=== PATIENT | female | born 1955 | race Caucasian/White ===

== ENCOUNTER 2019-10-23 07:47 | Inpatient (IN) ==
[2019-10-23] MEDS ORDERED: *HR* LORazepam 2 MG/ML VIAL IVP ONE (10:27)
[2019-10-23] MEDS ORDERED: Naloxone 0.4 MG/ML INJ IVP PRN (10:28)
[2019-10-23] MEDS ORDERED: Ondansetron 4 MG/2 ML VIAL IVP PRN (10:28)
[2019-10-23 10:41] LABS: ABG Base Excess -2 mEq/L (-2 to 3); ABG HCO3 30 mEq/L (21-27); ABG Oxygen Saturation 97 % (95-98); ABG PCO2 76 mmHg (35-45); ABG PO2 110 mmHg (85-104); ABG TCO2 32 mEq/L (20-26); Blood Gas Pressure Support 7 cm H2O
[2019-10-23] MEDS: methylPREDNISolone 125 MG/2 ML VIAL IVP SCH ×3 (10:45→23:12)
[2019-10-23] MEDS: Piperacillin/Tazobactam 3.375 GM in 0.9 % Sodium Chloride Mini Bag 100 ML IVPB SCH ×3 (10:46→16:25)
[2019-10-23] MEDS: Ipratropium/Albuterol Neb 3 ML IH PRN ×2 (10:46→15:30)
[2019-10-23] MEDS ORDERED: Dextrose Gel 15 GM/37.5 ML TUBE PO PRN ×2 (10:55)
[2019-10-23] MEDS ORDERED: D5% in Water 1,000 ML IVC PRN (10:55)
[2019-10-23] MEDS ORDERED: *HR* Dextrose 50 % in Water (Syg) 50 ML SYRINGE IVP PRN (10:55)
[2019-10-23 11:32] LABS: Basophils % 0.1 %; Hematocrit 46.8 % (35.3-44.9); Hemoglobin 15.2 g/dL (11.5-15.4); Immature Granulocytes % 0.5 % (0-4); Lymphocytes # 0.6 K/mcL (0.6-4.6); Lymphocytes % 3.9 %; Mean Corpuscular HGB Conc 32.5 g/dL (31.6-35.5); Mean Corpuscular Hemoglobin 26.4 pg (28.0-33.3); Mean Corpuscular Volume 81.3 fL (83.0-100.0); Mean Platelet Volume 9.4 fL (9.4-12.4); Monocytes # 0.6 K/mcL (0.0-1.3); Monocytes % 3.9 %; Neutrophils # 14.6 K/mcL (1.6-8.9); Platelet Count 336 K/mcL (140-400); Red Blood Count 5.76 M/mcL (3.82-4.97); Red Cell Distribution Width 14.1 % (11.5-14.5); Segmented Neutrophils % 91.6 %
[2019-10-23 11:34] LABS: VBG HCO3 27 mEq/L (21-27); VBG PCO2 66 mmHg (41-51); VBG PH 7.23 pH Units (7.32-7.42); VBG PO2 155 mmHg (25-50)
[2019-10-23] MEDS: Ipratropium/Albuterol Neb 3 ML IH SCH ×3 (11:43→19:50)
[2019-10-23] MEDS ORDERED: Furosemide 40 MG/4 ML VIAL IVP ONE (11:46)
[2019-10-23 11:53] LABS: BUN/Creatinine Ratio 23 (6-26); Blood Urea Nitrogen 13 mg/dL (8-23); Calcium 9.2 mg/dL (8.6-10.3); Carbon Dioxide 26 mEq/L (23-29); Chloride 95 mEq/L (98-107); Glucose 190 mg/dL (70-105); Osmolality,Calculated 275 (280-300); Potassium 4.4 mEq/L (3.5-5.1); Sodium 130 mEq/L (136-145); eGFR For African Americans > 60 (> 60); eGFR For Non-African Americans > 60 (> 60)
[2019-10-23 12:13] LABS: Troponin I 0.46 ng/mL (< 0.04)
[2019-10-23] MEDS: Insulin LISPRO 300 UNITS/3 ML VIAL SQ SCH ×3 (12:15→23:38)
[2019-10-23] MEDS ORDERED: Aspirin 325 MG TABLET PO ONE (12:33)
[2019-10-23] MEDS ORDERED: Morphine Sulfate 2 MG/ML SYRINGE IVP PRN (12:44)
[2019-10-23] MEDS ORDERED: Ipratropium/Albuterol Neb 3 ML ONE (13:11)
[2019-10-23] MEDS ORDERED: Ipratropium/Albuterol Neb 3 ML IH ONE (13:13)
[2019-10-23] MEDS ORDERED: Perflutren Lipid Microsphere 1.3 ML in 0.9 % Sodium Chloride 8.7 ML IVP ONE (14:30)
[2019-10-23] MEDS ORDERED: Perflutren Lipid Microsphere 2 ML VIAL ONE (14:35)
[2019-10-23 15:18] LABS: ABG Base Excess -1 mEq/L (-2 to 3); ABG HCO3 30 mEq/L (21-27); ABG Oxygen Saturation 97 % (95-98); ABG PCO2 77 mmHg (35-45); ABG PO2 116 mmHg (85-104); ABG TCO2 33 mEq/L (20-26); Blood Gas Modality AF; Blood Gas VT 450 cc
[2019-10-23] MEDS: *HR* OxyCODONE Immed Rel 5 MG TABLET PO PRN (17:17)
[2019-10-23] MEDS ORDERED: *HR* Heparin 5,000 UNIT/ML VIAL IVP ONE (18:11)
[2019-10-23] MEDS ORDERED: *HR* Heparin 5,000 UNIT/ML VIAL IVP PRN ×2 (18:11)
[2019-10-23] MEDS ORDERED: Heparin 25,000 UNIT/250 ML D5W 25,000 UNIT/250 ML IV.SOLN IVC SCH (18:15)
[2019-10-23 18:55] LABS: Hematocrit 45.3 % (35.3-44.9); Hemoglobin 14.5 g/dL (11.5-15.4); Mean Corpuscular Hemoglobin 26.3 pg (28.0-33.3); Mean Corpuscular Volume 82.1 fL (83.0-100.0); Mean Platelet Volume 9.3 fL (9.4-12.4); Platelet Count 308 K/mcL (140-400); Red Blood Count 5.52 M/mcL (3.82-4.97); Red Cell Distribution Width 14.2 % (11.5-14.5); White Blood Count 16.2 K/mcL (4.3-11.1)
[2019-10-23 19:00] LABS: INR 0.9; Prothrombin Time 10.5 Seconds (9.4-12.1)
[2019-10-23] MEDS: *HR* LORazepam 2 MG/ML VIAL IVP PRN (21:26)
[2019-10-24] MEDS: Ipratropium/Albuterol Neb 3 ML IH SCH ×7 (00:09→23:25)
[2019-10-24 02:48] LABS: Basophils % 0.1 %; Hematocrit 45.9 % (35.3-44.9); Hemoglobin 15.1 g/dL (11.5-15.4); Immature Granulocytes % 0.5 % (0-4); Lymphocytes # 0.6 K/mcL (0.6-4.6); Lymphocytes % 3.2 %; Mean Corpuscular HGB Conc 32.9 g/dL (31.6-35.5); Mean Corpuscular Hemoglobin 26.3 pg (28.0-33.3); Mean Corpuscular Volume 79.8 fL (83.0-100.0); Mean Platelet Volume 9.7 fL (9.4-12.4); Monocytes # 0.7 K/mcL (0.0-1.3); Monocytes % 4.2 %; Platelet Count 334 K/mcL (140-400); Red Blood Count 5.75 M/mcL (3.82-4.97); Red Cell Distribution Width 14.2 % (11.5-14.5); White Blood Count 17.4 K/mcL (4.3-11.1)
[2019-10-24 04:01] LABS: BUN/Creatinine Ratio 21 (6-26); Blood Urea Nitrogen 21 mg/dL (8-23); Calcium 9.1 mg/dL (8.6-10.3); Carbon Dioxide 22 mEq/L (23-29); Chloride 97 mEq/L (98-107); Glucose 148 mg/dL (70-105); Osmolality,Calculated 282 (280-300); Potassium 4.5 mEq/L (3.5-5.1); Sodium 133 mEq/L (136-145); eGFR For African Americans > 60 (> 60); eGFR For Non-African Americans 55 (> 60)
[2019-10-24] MEDS ORDERED: *HR* Enoxaparin 40 MG/0.4 ML SYRINGE SQ SCH (06:00)
[2019-10-24] MEDS: methylPREDNISolone 125 MG/2 ML VIAL IVP SCH ×3 (06:26→19:02)
[2019-10-24] MEDS: Insulin LISPRO 300 UNITS/3 ML VIAL SQ SCH ×3 (06:26→19:00)
[2019-10-24] MEDS: *HR* LORazepam 2 MG/ML VIAL IVP PRN (07:45)
[2019-10-24] MEDS: Azithromycin 500 MG in 0.9 % Sodium Chloride 250 ML IVPB SCH (07:45)
[2019-10-24] MEDS: Piperacillin/Tazobactam 3.375 GM in 0.9 % Sodium Chloride Mini Bag 100 ML IVPB SCH ×2 (07:46→15:33)
[2019-10-24 09:28] LABS: ABG Base Excess 1 mEq/L (-2 to 3); ABG HCO3 32 mEq/L (21-27); ABG Oxygen Saturation 99 % (95-98); ABG PCO2 81 mmHg (35-45); ABG PO2 158 mmHg (85-104); ABG TCO2 35 mEq/L (20-26); Blood Gas Modality AF; Blood Gas VT 500 cc
[2019-10-24] MEDS ORDERED: *HR* Midazolam HCl 2 MG/2 ML VIAL IV ONE (10:41)
[2019-10-24] MEDS ORDERED: *HR* Propofol 200 MG/20 ML VIAL IVP ONE (10:41)
[2019-10-24] MEDS ORDERED: *HR* Etomidate 40 MG/20 ML VIAL IVP ONE (10:41)
[2019-10-24] MEDS ORDERED: *HR* Midazolam HCl 5 MG/5 ML VIAL IVP ONE (10:41)
[2019-10-24] MEDS ORDERED: Ringers Solution, Lactated 1,000 ML ONE (10:54)
[2019-10-24] MEDS ORDERED: *HR* FentaNYL (PF) 100 MCG/2 ML VIAL ONE (11:00)
[2019-10-24] MEDS ORDERED: *HR* Phenylephrine 10 MG/ML VIAL ONE (11:05)
[2019-10-24] MEDS ORDERED: *HR* FentaNYL (PF) 100 MCG/2 ML VIAL IVP ONE (11:32)
[2019-10-24] MEDS ORDERED: Artificial Tears SOLN 15 ML BOTTLE BOTH EYES PRN (11:35)
[2019-10-24] MEDS: FentaNYL (PF) 1,000 MCG in 0.9 % Sodium Chloride 80 ML IVC SCH ×2 (12:25→19:43)
[2019-10-24] MEDS ORDERED: Pantoprazole 40 MG VIAL IVP SCH (12:50)
[2019-10-24] MEDS ORDERED: methylPREDNISolone 125 MG/2 ML VIAL IVP SCH (13:15)
[2019-10-24 13:23] LABS: ABG Base Excess 3 mEq/L (-2 to 3); ABG HCO3 34 mEq/L (21-27); ABG Oxygen Saturation 97 % (95-98); ABG PCO2 83 mmHg (35-45); ABG PH 7.21 pH Units (7.32-7.45); ABG PO2 109 mmHg (85-104); ABG TCO2 36 mEq/L (20-26); Blood Gas Modality AF; Blood Gas VT 450 cc
[2019-10-24 14:14] LABS: Adenovirus Not Detected (Not Detect); Bordetella Pertussis Not Detected (Not Detect); Chlamydophila pneumoniae Not Detected (Not Detect); Coronavirus 229E Not Detected (Not Detect); Coronavirus HKU1 Not Detected (Not Detect); Coronavirus NL63 Not Detected (Not Detect); Coronavirus OC43 Not Detected (Not Detect); Human Metapneumovirus Not Detected (Not Detect); Human Rhinovirus/Enterovirus Not Detected (Not Detect); Influenza A Subtype 2009 H1 Not Detected (Not Detect); Influenza A Untypeable Not Detected (Not Detect); Influenza B Not Detected (Not Detect); Mycoplasma pneumoniae Not Detected (Not Detect); Parainfluenza Virus 1 Not Detected (Not Detect); Parainfluenza Virus 2 Not Detected (Not Detect); Parainfluenza Virus 3 Not Detected (Not Detect); Parainfluenza Virus 4 Not Detected (Not Detect); Respiratory Syncytial Virus Not Detected (Not Detect)
[2019-10-24] MEDS ORDERED: 0.9 % Sodium Chloride 1,000 ML IVC SCH (15:30)
[2019-10-24] MEDS: Artificial Tears SOLN 15 ML BOTTLE BOTH EYES SCH ×3 (15:34→20:00)
[2019-10-24] MEDS: 0.9 % Sodium Chloride 1,000 ML IVC SCH (17:29)
[2019-10-24] MEDS ORDERED: Famotidine 20 MG/2 ML VIAL IVP SCH (18:00)
[2019-10-24] MEDS: Famotidine 20 MG/2 ML VIAL IVP SCH (19:02)
[2019-10-24] MEDS: Chlorhexidine Rinse 15 ML MOUTHWASH MM SCH (21:43)
[2019-10-24] MEDS: *HR* Heparin 5,000 UNIT/ML VIAL SQ SCH (22:15)
[2019-10-25] MEDS: Piperacillin/Tazobactam 3.375 GM in 0.9 % Sodium Chloride Mini Bag 100 ML IVPB SCH ×4 (00:37→23:16)
[2019-10-25] MEDS: Artificial Tears SOLN 15 ML BOTTLE BOTH EYES SCH ×7 (00:37→23:15)
[2019-10-25] MEDS: Insulin LISPRO 300 UNITS/3 ML VIAL SQ SCH ×5 (00:37→23:15)
[2019-10-25] MEDS: methylPREDNISolone 125 MG/2 ML VIAL IVP SCH ×3 (02:08→17:46)
[2019-10-25] MEDS: FentaNYL (PF) 1,000 MCG in 0.9 % Sodium Chloride 80 ML IVC SCH ×4 (03:05→21:08)
[2019-10-25] MEDS: 0.9 % Sodium Chloride 1,000 ML IVC SCH (03:09)
[2019-10-25] MEDS: Ipratropium/Albuterol Neb 3 ML IH SCH ×6 (03:25→23:51)
[2019-10-25 03:48] LABS: Basophils % 0.1 %; Hematocrit 42.2 % (35.3-44.9); Hemoglobin 13.8 g/dL (11.5-15.4); Immature Granulocytes % 0.5 % (0-4); Lymphocytes # 0.7 K/mcL (0.6-4.6); Lymphocytes % 5.4 %; Mean Corpuscular HGB Conc 32.7 g/dL (31.6-35.5); Mean Corpuscular Hemoglobin 26.3 pg (28.0-33.3); Mean Corpuscular Volume 80.4 fL (83.0-100.0); Mean Platelet Volume 9.3 fL (9.4-12.4); Monocytes # 0.6 K/mcL (0.0-1.3); Neutrophils # 11.3 K/mcL (1.6-8.9); Platelet Count 300 K/mcL (140-400); Red Blood Count 5.25 M/mcL (3.82-4.97); Red Cell Distribution Width 14.6 % (11.5-14.5); White Blood Count 12.8 K/mcL (4.3-11.1)
[2019-10-25 04:03] LABS: BUN/Creatinine Ratio 35 (6-26); Blood Urea Nitrogen 29 mg/dL (8-23); Calcium 8.7 mg/dL (8.6-10.3); Carbon Dioxide 31 mEq/L (23-29); Chloride 100 mEq/L (98-107); Glucose 131 mg/dL (70-105); Osmolality,Calculated 286 (280-300); Potassium 4.4 mEq/L (3.5-5.1); Sodium 134 mEq/L (136-145); eGFR For African Americans > 60 (> 60); eGFR For Non-African Americans > 60 (> 60)
[2019-10-25 05:06] LABS: ABG Base Excess 1 mEq/L (-2 to 3); ABG HCO3 30 mEq/L (21-27); ABG Oxygen Saturation 95 % (95-98); ABG PCO2 64 mmHg (35-45); ABG PH 7.28 pH Units (7.32-7.45); ABG PO2 90 mmHg (85-104); ABG TCO2 32 mEq/L (20-26); Blood Gas Modality ASSIST CONTROL; Blood Gas VT 450 cc
[2019-10-25] MEDS: *HR* Heparin 5,000 UNIT/ML VIAL SQ SCH ×3 (06:42→21:09)
[2019-10-25] MEDS: Chlorhexidine Rinse 15 ML MOUTHWASH MM SCH ×2 (07:57→19:58)
[2019-10-25] MEDS: Azithromycin 500 MG in 0.9 % Sodium Chloride 250 ML IVPB SCH (09:05)
[2019-10-25] MEDS: Famotidine 20 MG/2 ML VIAL IVP SCH (17:46)
[2019-10-26] MEDS: methylPREDNISolone 125 MG/2 ML VIAL IVP SCH ×3 (01:05→18:11)
[2019-10-26] MEDS: FentaNYL (PF) 1,000 MCG in 0.9 % Sodium Chloride 80 ML IVC SCH ×4 (01:06→18:00)
[2019-10-26] MEDS: Ipratropium/Albuterol Neb 3 ML IH SCH ×6 (03:22→23:44)
[2019-10-26] MEDS: Artificial Tears SOLN 15 ML BOTTLE BOTH EYES SCH ×6 (04:03→23:41)
[2019-10-26 04:15] LABS: BUN/Creatinine Ratio 42 (6-26); Blood Urea Nitrogen 38 mg/dL (8-23); Calcium 9.1 mg/dL (8.6-10.3); Carbon Dioxide 29 mEq/L (23-29); Chloride 101 mEq/L (98-107); Glucose 152 mg/dL (70-105); Osmolality,Calculated 292 (280-300); Sodium 135 mEq/L (136-145); eGFR For African Americans > 60 (> 60); eGFR For Non-African Americans > 60 (> 60)
[2019-10-26 04:32] LABS: Basophils % 0.1 %; Hematocrit 45.2 % (35.3-44.9); Hemoglobin 14.4 g/dL (11.5-15.4); Immature Granulocytes % 0.6 % (0-4); Lymphocytes # 0.4 K/mcL (0.6-4.6); Lymphocytes % 3.5 %; Mean Corpuscular HGB Conc 31.9 g/dL (31.6-35.5); Mean Corpuscular Hemoglobin 26.2 pg (28.0-33.3); Mean Corpuscular Volume 82.2 fL (83.0-100.0); Mean Platelet Volume 9.5 fL (9.4-12.4); Monocytes # 0.6 K/mcL (0.0-1.3); Monocytes % 5.2 %; Neutrophils # 10.3 K/mcL (1.6-8.9); Platelet Count 309 K/mcL (140-400); Red Cell Distribution Width 14.9 % (11.5-14.5); Segmented Neutrophils % 90.6 %; White Blood Count 11.4 K/mcL (4.3-11.1)
[2019-10-26] MEDS: *HR* Heparin 5,000 UNIT/ML VIAL SQ SCH ×3 (05:07→20:58)
[2019-10-26] MEDS: Insulin LISPRO 300 UNITS/3 ML VIAL SQ SCH ×4 (05:08→23:43)
[2019-10-26 05:12] LABS: ABG Base Excess 2 mEq/L (-2 to 3); ABG HCO3 32 mEq/L (21-27); ABG Oxygen Saturation 83 % (95-98); ABG PCO2 77 mmHg (35-45); ABG PH 7.22 pH Units (7.32-7.45); ABG PO2 59 mmHg (85-104); ABG TCO2 34 mEq/L (20-26); Blood Gas Modality ASSIST CONTROL; Blood Gas VT 450 cc
[2019-10-26] MEDS ORDERED: Furosemide 20 MG/2 ML VIAL IVP ONE (08:24)
[2019-10-26] MEDS: Chlorhexidine Rinse 15 ML MOUTHWASH MM SCH ×2 (09:37→20:58)
[2019-10-26] MEDS: Piperacillin/Tazobactam 3.375 GM in 0.9 % Sodium Chloride Mini Bag 100 ML IVPB SCH ×2 (09:37→16:17)
[2019-10-26] MEDS: Azithromycin 500 MG in 0.9 % Sodium Chloride 250 ML IVPB SCH (09:37)
[2019-10-26] MEDS: Famotidine 20 MG/2 ML VIAL IVP SCH (18:11)
[2019-10-27] MEDS: Piperacillin/Tazobactam 3.375 GM in 0.9 % Sodium Chloride Mini Bag 100 ML IVPB SCH ×4 (00:19→23:45)
[2019-10-27] MEDS: Artificial Tears SOLN 15 ML BOTTLE BOTH EYES SCH ×6 (03:13→23:38)
[2019-10-27] MEDS: Ipratropium/Albuterol Neb 3 ML IH SCH ×6 (04:15→23:18)
[2019-10-27 05:45] LABS: ABG Base Excess 8 mEq/L (-2 to 3); ABG HCO3 38 mEq/L (21-27); ABG Oxygen Saturation 94 % (95-98); ABG PCO2 81 mmHg (35-45); ABG PH 7.28 pH Units (7.32-7.45); ABG PO2 85 mmHg (85-104); ABG TCO2 41 mEq/L (20-26)
[2019-10-27] MEDS: *HR* Heparin 5,000 UNIT/ML VIAL SQ SCH ×3 (06:08→21:28)
[2019-10-27] MEDS: methylPREDNISolone 125 MG/2 ML VIAL IVP SCH ×2 (06:08→18:24)
[2019-10-27] MEDS: Insulin LISPRO 300 UNITS/3 ML VIAL SQ SCH ×4 (06:09→23:38)
[2019-10-27] MEDS: Chlorhexidine Rinse 15 ML MOUTHWASH MM SCH ×2 (08:32→19:27)
[2019-10-27] MEDS: Azithromycin 500 MG in 0.9 % Sodium Chloride 250 ML IVPB SCH (08:32)
[2019-10-27] MEDS: Budesonide/Formoterol 160/4.5 1 PUFF INH IH SCH ×2 (09:36→19:29)
[2019-10-27 09:40] LABS: Basophils % 0.1 %; Hematocrit 43.3 % (35.3-44.9); Hemoglobin 13.8 g/dL (11.5-15.4); Immature Granulocytes % 0.8 % (0-4); Lymphocytes # 0.9 K/mcL (0.6-4.6); Lymphocytes % 8.2 %; Mean Corpuscular HGB Conc 31.9 g/dL (31.6-35.5); Mean Corpuscular Hemoglobin 26.3 pg (28.0-33.3); Mean Corpuscular Volume 82.6 fL (83.0-100.0); Mean Platelet Volume 9.5 fL (9.4-12.4); Monocytes # 1.2 K/mcL (0.0-1.3); Neutrophils # 9.3 K/mcL (1.6-8.9); Platelet Count 281 K/mcL (140-400); Red Blood Count 5.24 M/mcL (3.82-4.97); Red Cell Distribution Width 14.8 % (11.5-14.5); Segmented Neutrophils % 80.9 %; White Blood Count 11.5 K/mcL (4.3-11.1)
[2019-10-27 10:01] LABS: BUN/Creatinine Ratio 51 (6-26); Blood Urea Nitrogen 39 mg/dL (8-23); Calcium 8.9 mg/dL (8.6-10.3); Carbon Dioxide 37 mEq/L (23-29); Chloride 101 mEq/L (98-107); Glucose 139 mg/dL (70-105); Osmolality,Calculated 302 (280-300); Potassium 5.1 mEq/L (3.5-5.1); Sodium 140 mEq/L (136-145); eGFR For African Americans > 60 (> 60); eGFR For Non-African Americans > 60 (> 60)
[2019-10-27 12:05] LABS: ABG Base Excess 7 mEq/L (-2 to 3); ABG HCO3 40 mEq/L (21-27); ABG Oxygen Saturation 93 % (95-98); ABG PCO2 102 mmHg (35-45); ABG PO2 87 mmHg (85-104); ABG TCO2 43 mEq/L (20-26); Blood Gas VT 500 cc
[2019-10-27 13:40] LABS: ABG Base Excess 9 mEq/L (-2 to 3); ABG HCO3 40 mEq/L (21-27); ABG Oxygen Saturation 97 % (95-98); ABG PCO2 85 mmHg (35-45); ABG PH 7.28 pH Units (7.32-7.45); ABG PO2 112 mmHg (85-104); ABG TCO2 43 mEq/L (20-26)
[2019-10-27] MEDS: Famotidine 20 MG/2 ML VIAL IVP SCH (18:24)
[2019-10-27] MEDS: Docusate Oral Soln 100 MG/10 ML UDC GTUBE SCH (19:27)
[2019-10-28] MEDS: Ipratropium/Albuterol Neb 3 ML IH SCH ×6 (03:14→23:23)
[2019-10-28] MEDS: Artificial Tears SOLN 15 ML BOTTLE BOTH EYES SCH ×6 (03:25→23:15)
[2019-10-28 03:44] LABS: Eosinophils % 0.1 %; Hematocrit 37.4 % (35.3-44.9); Immature Granulocytes % 0.6 % (0-4); Lymphocytes # 1.3 K/mcL (0.6-4.6); Lymphocytes % 18.9 %; Mean Corpuscular HGB Conc 32.4 g/dL (31.6-35.5); Mean Corpuscular Hemoglobin 26.8 pg (28.0-33.3); Mean Corpuscular Volume 82.7 fL (83.0-100.0); Mean Platelet Volume 9.6 fL (9.4-12.4); Monocytes # 0.7 K/mcL (0.0-1.3); Neutrophils # 4.8 K/mcL (1.6-8.9); Platelet Count 222 K/mcL (140-400); Red Blood Count 4.52 M/mcL (3.82-4.97); Red Cell Distribution Width 14.8 % (11.5-14.5); Segmented Neutrophils % 70.4 %; White Blood Count 6.8 K/mcL (4.3-11.1)
[2019-10-28 03:58] LABS: Hemoglobin 12.1 g/dL (11.5-15.4)
[2019-10-28 04:05] LABS: BUN/Creatinine Ratio 56 (6-26); Blood Urea Nitrogen 37 mg/dL (8-23); Calcium 8.5 mg/dL (8.6-10.3); Carbon Dioxide 33 mEq/L (23-29); Chloride 102 mEq/L (98-107); Glucose 156 mg/dL (70-105); Osmolality,Calculated 302 (280-300); Potassium 5.2 mEq/L (3.5-5.1); Sodium 140 mEq/L (136-145); eGFR For African Americans > 60 (> 60); eGFR For Non-African Americans > 60 (> 60)
[2019-10-28 04:35] LABS: ABG Base Excess 10 mEq/L (-2 to 3); ABG HCO3 38 mEq/L (21-27); ABG Oxygen Saturation 98 % (95-98); ABG PCO2 65 mmHg (35-45); ABG PH 7.37 pH Units (7.32-7.45); ABG PO2 107 mmHg (85-104); ABG TCO2 40 mEq/L (20-26); Blood Gas Modality VC; Blood Gas VT 550 cc
[2019-10-28] MEDS: Insulin LISPRO 300 UNITS/3 ML VIAL SQ SCH ×4 (05:19→23:16)
[2019-10-28] MEDS: *HR* Heparin 5,000 UNIT/ML VIAL SQ SCH ×3 (05:21→21:59)
[2019-10-28] MEDS: methylPREDNISolone 125 MG/2 ML VIAL IVP SCH ×2 (05:21→17:56)
[2019-10-28] MEDS: Budesonide/Formoterol 160/4.5 1 PUFF INH IH SCH ×2 (07:36→19:29)
[2019-10-28] MEDS: Docusate Oral Soln 100 MG/10 ML UDC GTUBE SCH ×2 (08:18→19:08)
[2019-10-28] MEDS: Chlorhexidine Rinse 15 ML MOUTHWASH MM SCH ×2 (08:18→19:08)
[2019-10-28] MEDS: Piperacillin/Tazobactam 3.375 GM in 0.9 % Sodium Chloride Mini Bag 100 ML IVPB SCH ×3 (08:18→23:20)
[2019-10-28] MEDS: Azithromycin 500 MG in 0.9 % Sodium Chloride 250 ML IVPB SCH (08:19)
[2019-10-28] MEDS: Dexmedetomidine HCl 400 MCG/100 ML MLS IVC SCH (14:40)
[2019-10-28 15:12] LABS: Source of Body Fluid RLL BAL
[2019-10-28] MEDS: Famotidine 20 MG/2 ML VIAL IVP SCH (17:56)
[2019-10-28 22:16] LABS: Appearance of Body Fluid Cloudy (Clear); Volume of Body Fluid 15 mL
[2019-10-29] MEDS: Dexmedetomidine HCl 400 MCG/100 ML MLS IVC SCH ×2 (00:20→10:09)
[2019-10-29] MEDS: Ipratropium/Albuterol Neb 3 ML IH SCH ×6 (03:05→23:55)
[2019-10-29] MEDS: Artificial Tears SOLN 15 ML BOTTLE BOTH EYES SCH ×6 (03:51→23:38)
[2019-10-29 04:03] LABS: Basophils % 0.1 %; Eosinophils % 0.1 %; Hematocrit 40.4 % (35.3-44.9); Hemoglobin 12.2 g/dL (11.5-15.4); Immature Granulocytes % 0.6 % (0-4); Lymphocytes # 1.9 K/mcL (0.6-4.6); Lymphocytes % 19.5 %; Mean Corpuscular HGB Conc 30.2 g/dL (31.6-35.5); Mean Corpuscular Hemoglobin 26.3 pg (28.0-33.3); Mean Corpuscular Volume 87.1 fL (83.0-100.0); Mean Platelet Volume 9.7 fL (9.4-12.4); Monocytes % 9.8 %; Neutrophils # 6.8 K/mcL (1.6-8.9); Platelet Count 203 K/mcL (140-400); Red Blood Count 4.64 M/mcL (3.82-4.97); Red Cell Distribution Width 14.6 % (11.5-14.5); Segmented Neutrophils % 69.9 %; White Blood Count 9.7 K/mcL (4.3-11.1)
[2019-10-29 04:15] LABS: ABG Base Excess 9 mEq/L (-2 to 3); ABG HCO3 38 mEq/L (21-27); ABG Oxygen Saturation 94 % (95-98); ABG PCO2 76 mmHg (35-45); ABG PH 7.31 pH Units (7.32-7.45); ABG PO2 80 mmHg (85-104); ABG TCO2 40 mEq/L (20-26); Blood Gas Modality VC; Blood Gas VT 550 cc
[2019-10-29 04:19] LABS: BUN/Creatinine Ratio 57 (6-26); Blood Urea Nitrogen 38 mg/dL (8-23); Calcium 8.8 mg/dL (8.6-10.3); Carbon Dioxide 36 mEq/L (23-29); Chloride 101 mEq/L (98-107); Glucose 162 mg/dL (70-105); Osmolality,Calculated 303 (280-300); Potassium 5.4 mEq/L (3.5-5.1); Sodium 140 mEq/L (136-145); eGFR For African Americans > 60 (> 60); eGFR For Non-African Americans > 60 (> 60)
[2019-10-29] MEDS: *HR* Heparin 5,000 UNIT/ML VIAL SQ SCH ×3 (05:38→20:22)
[2019-10-29] MEDS: methylPREDNISolone 125 MG/2 ML VIAL IVP SCH ×2 (05:38→17:36)
[2019-10-29] MEDS: Insulin LISPRO 300 UNITS/3 ML VIAL SQ SCH ×4 (05:39→23:39)
[2019-10-29] MEDS: Budesonide/Formoterol 160/4.5 1 PUFF INH IH SCH ×2 (07:40→20:30)
[2019-10-29] MEDS: Chlorhexidine Rinse 15 ML MOUTHWASH MM SCH ×2 (08:07→19:39)
[2019-10-29] MEDS: Docusate Oral Soln 100 MG/10 ML UDC GTUBE SCH ×2 (08:07→19:39)
[2019-10-29] MEDS: Azithromycin 500 MG in 0.9 % Sodium Chloride 250 ML IVPB SCH (08:07)
[2019-10-29] MEDS: Piperacillin/Tazobactam 3.375 GM in 0.9 % Sodium Chloride Mini Bag 100 ML IVPB SCH (08:08)
[2019-10-29] MEDS ORDERED: *HR* Labetalol 20 MG/4 ML SYRINGE IVP ONE ×2 (16:21→16:32)
[2019-10-29] MEDS: Famotidine 20 MG/2 ML VIAL IVP SCH (17:37)
[2019-10-29] MEDS: niCARdipine 20 MG in 0.9 % Sodium Chloride 192 ML IVC SCH ×2 (18:14→21:00)
[2019-10-29] MEDS ORDERED: niCARdipine 40 MG in 0.9 % Sodium Chloride 184 ML IVC SCH (22:15)
[2019-10-29] MEDS: *HR* OxyCODONE Immed Rel 5 MG TABLET PO PRN (23:15)
[2019-10-30] MEDS ORDERED: Nitroglycerin 0.4 MG TAB.SUBL SL ONE (00:29)
[2019-10-30] MEDS: Artificial Tears SOLN 15 ML BOTTLE BOTH EYES SCH ×2 (03:27→09:45)
[2019-10-30] MEDS: niCARdipine 40 MG/200 ML MLS IVC SCH ×2 (03:28→10:48)
[2019-10-30] MEDS: Ipratropium/Albuterol Neb 3 ML IH SCH ×5 (03:44→20:24)
[2019-10-30 04:56] LABS: ABG Base Excess 11 mEq/L (-2 to 3); ABG HCO3 39 mEq/L (21-27); ABG Oxygen Saturation 99 % (95-98); ABG PCO2 67 mmHg (35-45); ABG PH 7.38 pH Units (7.32-7.45); ABG PO2 167 mmHg (85-104); ABG TCO2 42 mEq/L (20-26); Blood Gas Modality AVAPS; Blood Gas VT 500 cc
[2019-10-30] MEDS: Insulin LISPRO 300 UNITS/3 ML VIAL SQ SCH ×3 (05:32→20:59)
[2019-10-30] MEDS: methylPREDNISolone 125 MG/2 ML VIAL IVP SCH ×2 (05:33→17:25)
[2019-10-30] MEDS: *HR* Heparin 5,000 UNIT/ML VIAL SQ SCH ×3 (05:33→20:58)
[2019-10-30 06:45] LABS: Basophils % 0.3 %; Eosinophils % 0.3 %; Hematocrit 46.7 % (35.3-44.9); Immature Granulocytes % 0.8 % (0-4); Lymphocytes # 3.4 K/mcL (0.6-4.6); Lymphocytes % 22.9 %; Mean Corpuscular Hemoglobin 26.2 pg (28.0-33.3); Mean Corpuscular Volume 84.3 fL (83.0-100.0); Mean Platelet Volume 9.9 fL (9.4-12.4); Monocytes # 1.5 K/mcL (0.0-1.3); Monocytes % 10.1 %; Neutrophils # 9.8 K/mcL (1.6-8.9); Platelet Count 235 K/mcL (140-400); Red Blood Count 5.54 M/mcL (3.82-4.97); Red Cell Distribution Width 14.1 % (11.5-14.5); Segmented Neutrophils % 65.6 %
[2019-10-30 06:57] LABS: BUN/Creatinine Ratio 51 (6-26); Blood Urea Nitrogen 22 mg/dL (8-23); Calcium 9.7 mg/dL (8.6-10.3); Carbon Dioxide 36 mEq/L (23-29); Chloride 95 mEq/L (98-107); Glucose 86 mg/dL (70-105); Osmolality,Calculated 291 (280-300); Potassium 4.2 mEq/L (3.5-5.1); Sodium 139 mEq/L (136-145); eGFR For African Americans > 60 (> 60); eGFR For Non-African Americans > 60 (> 60)
[2019-10-30 07:10] LABS: White Blood Count 14.9 K/mcL (4.3-11.1)
[2019-10-30 07:11] LABS: Hemoglobin 14.5 g/dL (11.5-15.4)
[2019-10-30] MEDS: Budesonide/Formoterol 160/4.5 1 PUFF INH IH SCH (08:29)
[2019-10-30] MEDS ORDERED: Bumetanide 1 MG TABLET PO ONE (09:24)
[2019-10-30] MEDS ORDERED: Lisinopril 20 MG TABLET PO SCH (09:30)
[2019-10-30] MEDS ORDERED: Dextrose Gel 15 GM/37.5 ML TUBE PO PRN ×6 (09:55→12:28)
[2019-10-30] MEDS ORDERED: D5% in Water 1,000 ML IVC PRN ×2 (09:55→12:28)
[2019-10-30] MEDS ORDERED: *HR* Dextrose 50 % in Water (Syg) 50 ML SYRINGE IVP PRN ×2 (09:55→12:28)
[2019-10-30] MEDS: Docusate Oral Soln 100 MG/10 ML UDC GTUBE SCH ×2 (10:48→20:20)
[2019-10-30] MEDS: Chlorhexidine Rinse 15 ML MOUTHWASH MM SCH (10:51)
[2019-10-30] MEDS: *HR* OxyCODONE Immed Rel 5 MG TABLET PO PRN (10:52)
[2019-10-30] MEDS ORDERED: Insulin LISPRO 300 UNITS/3 ML VIAL SQ SCH ×2 (11:30→21:00)
[2019-10-30] MEDS ORDERED: Naloxone 0.4 MG/ML INJ IVP PRN (12:28)
[2019-10-30] MEDS ORDERED: Ipratropium/Albuterol Neb 3 ML IH PRN (12:28)
[2019-10-30] MEDS ORDERED: Ondansetron 4 MG/2 ML VIAL IVP PRN (12:28)
[2019-10-30] MEDS ORDERED: *HR* Labetalol 20 MG/4 ML SYRINGE IVP PRN (12:46)
[2019-10-30] MEDS: Famotidine 20 MG/2 ML VIAL IVP SCH (17:25)
[2019-10-30] MEDS ORDERED: Famotidine 20 MG/2 ML VIAL IVP SCH (18:00)
[2019-10-30] MEDS ORDERED: methylPREDNISolone 125 MG/2 ML VIAL IVP SCH (18:00)
[2019-10-30] MEDS: Budesonide Neb 0.5 MG/2 ML IH SCH (20:24)
[2019-10-30] MEDS ORDERED: Budesonide Neb 0.5 MG/2 ML IH SCH (22:00)
[2019-10-31] MEDS: Ipratropium/Albuterol Neb 3 ML IH SCH ×6 (00:23→20:46)
[2019-10-31] MEDS: methylPREDNISolone 125 MG/2 ML VIAL IVP SCH ×2 (05:58→16:44)
[2019-10-31] MEDS: Famotidine 20 MG/2 ML VIAL IVP SCH ×2 (05:59→16:45)
[2019-10-31] MEDS: *HR* Heparin 5,000 UNIT/ML VIAL SQ SCH ×2 (05:59→14:54)
[2019-10-31] MEDS: Lisinopril 20 MG TABLET PO SCH (07:15)
[2019-10-31] MEDS: Budesonide Neb 0.5 MG/2 ML IH SCH ×2 (07:43→20:46)
[2019-10-31] MEDS: Docusate Oral Soln 100 MG/10 ML UDC GTUBE SCH (08:28)
[2019-10-31] MEDS: Insulin LISPRO 300 UNITS/3 ML VIAL SQ SCH ×3 (08:32→17:42)
[2019-10-31 13:54] LABS: Basophils % 0.2 %; Hematocrit 45.5 % (35.3-44.9); Hemoglobin 14.5 g/dL (11.5-15.4); Immature Granulocytes % 0.9 % (0-4); Lymphocytes # 1.7 K/mcL (0.6-4.6); Lymphocytes % 14.3 %; Mean Corpuscular HGB Conc 31.9 g/dL (31.6-35.5); Mean Corpuscular Hemoglobin 26.3 pg (28.0-33.3); Mean Corpuscular Volume 82.6 fL (83.0-100.0); Monocytes # 1.1 K/mcL (0.0-1.3); Monocytes % 9.8 %; Neutrophils # 8.6 K/mcL (1.6-8.9); Platelet Count 238 K/mcL (140-400); Red Blood Count 5.51 M/mcL (3.82-4.97); Red Cell Distribution Width 13.6 % (11.5-14.5); Segmented Neutrophils % 74.8 %; White Blood Count 11.5 K/mcL (4.3-11.1)
[2019-10-31 14:48] LABS: BUN/Creatinine Ratio 51 (6-26); Blood Urea Nitrogen 26 mg/dL (8-23); Calcium 9.6 mg/dL (8.6-10.3); Carbon Dioxide 31 mEq/L (23-29); Chloride 97 mEq/L (98-107); Glucose 116 mg/dL (70-105); Osmolality,Calculated 292 (280-300); Potassium 4.1 mEq/L (3.5-5.1); Sodium 138 mEq/L (136-145); eGFR For African Americans > 60 (> 60); eGFR For Non-African Americans > 60 (> 60)
[2019-10-31 14:51] LABS: Phosphorous 3.3 mg/dL (2.7-4.5)
[2019-11-01] MEDS: Docusate Oral Soln 100 MG/10 ML UDC GTUBE SCH ×3 (00:11→21:08)
[2019-11-01] MEDS: *HR* Heparin 5,000 UNIT/ML VIAL SQ SCH ×4 (00:11→21:07)
[2019-11-01] MEDS: Ipratropium/Albuterol Neb 3 ML IH SCH ×6 (00:28→20:01)
[2019-11-01] MEDS: Insulin LISPRO 300 UNITS/3 ML VIAL SQ SCH ×5 (00:52→23:47)
[2019-11-01 03:28] LABS: BUN/Creatinine Ratio 49 (6-26); Blood Urea Nitrogen 24 mg/dL (8-23); Calcium 9.3 mg/dL (8.6-10.3); Carbon Dioxide 33 mEq/L (23-29); Chloride 98 mEq/L (98-107); Glucose 97 mg/dL (70-105); Osmolality,Calculated 292 (280-300); Sodium 139 mEq/L (136-145); eGFR For African Americans > 60 (> 60); eGFR For Non-African Americans > 60 (> 60)
[2019-11-01] MEDS: Famotidine 20 MG/2 ML VIAL IVP SCH ×2 (05:53→16:51)
[2019-11-01] MEDS: methylPREDNISolone 125 MG/2 ML VIAL IVP SCH ×2 (05:53→16:51)
[2019-11-01] MEDS ORDERED: *HR* Metoprolol 5 MG/5 ML VIAL IVP ONE (05:59)
[2019-11-01] MEDS: Lisinopril 20 MG TABLET PO SCH (07:32)
[2019-11-01] MEDS: Budesonide Neb 0.5 MG/2 ML IH SCH ×2 (07:41→20:01)
[2019-11-02] MEDS: Ipratropium/Albuterol Neb 3 ML IH SCH ×5 (00:06→15:53)
[2019-11-02 01:30] LABS: Basophils % 0.2 %; Hematocrit 45.7 % (35.3-44.9); Hemoglobin 14.3 g/dL (11.5-15.4); Immature Granulocytes % 0.6 % (0-4); Lymphocytes % 16.1 %; Mean Corpuscular HGB Conc 31.3 g/dL (31.6-35.5); Mean Corpuscular Hemoglobin 26.3 pg (28.0-33.3); Mean Platelet Volume 10.4 fL (9.4-12.4); Monocytes % 7.9 %; Neutrophils # 9.4 K/mcL (1.6-8.9); Platelet Count 176 K/mcL (140-400); Red Blood Count 5.44 M/mcL (3.82-4.97); Red Cell Distribution Width 13.5 % (11.5-14.5); Segmented Neutrophils % 75.2 %; White Blood Count 12.5 K/mcL (4.3-11.1)
[2019-11-02] MEDS: Famotidine 20 MG/2 ML VIAL IVP SCH (05:11)
[2019-11-02] MEDS: *HR* Heparin 5,000 UNIT/ML VIAL SQ SCH (05:11)
[2019-11-02] MEDS: methylPREDNISolone 125 MG/2 ML VIAL IVP SCH (05:12)
[2019-11-02] MEDS: Budesonide Neb 0.5 MG/2 ML IH SCH (07:11)
[2019-11-02] MEDS: Docusate Oral Soln 100 MG/10 ML UDC GTUBE SCH (07:30)
[2019-11-02] MEDS: Insulin LISPRO 300 UNITS/3 ML VIAL SQ SCH ×2 (07:37→11:45)
[2019-11-02] MEDS: Lisinopril 20 MG TABLET PO SCH (07:38)
[2019-11-02 11:37] VITALS: BP 135/83
== END 2019-11-02 16:32 | disposition home or self-care (01) | DRG 207 ==
LOC: 2NNU 10:04 → ICNU 12:44 → 2NNU 10-30 17:12
PROVIDERS: ADMIT Internal Medicine; ATTEND Internal Medicine

== ENCOUNTER 2020-01-04 00:28 | Inpatient (IN) ==
[~2020-01-04 00:28] MED LIST: Ipratropium/Albuterol Neb 3 ML ONE
[2020-01-04] MEDS ORDERED: Albuterol 2.5 MG/3 ML NEBULIZER IH PRN ×2 (03:36→11:32)
[2020-01-04] MEDS ORDERED: Naloxone 0.4 MG/ML INJ IVP PRN ×2 (03:36→11:32)
[2020-01-04] MEDS ORDERED: Dextrose Gel 15 GM/37.5 ML TUBE PO PRN ×4 (03:39→11:32)
[2020-01-04] MEDS ORDERED: D5% in Water 1,000 ML IVC PRN ×2 (03:39→11:32)
[2020-01-04] MEDS ORDERED: *HR* Dextrose 50 % in Water (Syg) 50 ML SYRINGE IVP PRN ×2 (03:39→11:32)
[2020-01-04] MEDS ORDERED: Ipratropium/Albuterol Neb 3 ML IH SCH (05:00)
[2020-01-04 05:18] LABS: Hematocrit 41.8 % (35.3-44.9); Hemoglobin 14.4 g/dL (11.5-15.4); Mean Corpuscular HGB Conc 34.4 g/dL (31.6-35.5); Mean Corpuscular Hemoglobin 26.8 pg (28.0-33.3); Mean Corpuscular Volume 77.7 fL (83.0-100.0); Mean Platelet Volume 9.3 fL (9.4-12.4); Platelet Count 293 K/mcL (140-400); Red Blood Count 5.38 M/mcL (3.82-4.97); Red Cell Distribution Width 14.9 % (11.5-14.5); White Blood Count 9.6 K/mcL (4.3-11.1)
[2020-01-04 05:38] LABS: Alanine Aminotransferase 12 Units/L (7-52); Albumin 3.9 g/dL (3.5-5.7); Albumin/Globulin Ratio 1.4 (1.1-2.2); Alkaline Phosphatase 79 Units/L (34-104); Aspartate Amino Transferase 15 Units/L (13-39); BUN/Creatinine Ratio 24 (6-26); Bilirubin,Total 0.3 mg/dL (0.3-1.0); Blood Urea Nitrogen 15 mg/dL (8-23); Calcium 9.6 mg/dL (8.6-10.3); Carbon Dioxide 25 mEq/L (23-29); Chloride 97 mEq/L (98-107); Globulin 2.8 g/dL (2.4-3.5); Glucose 196 mg/dL (70-105); Magnesium 1.6 mg/dL (1.6-2.6); Osmolality,Calculated 278 (280-300); Phosphorous 4.4 mg/dL (2.7-4.5); Potassium 3.6 mEq/L (3.5-5.1); Sodium 131 mEq/L (136-145); Total Protein 6.7 g/dL (6.4-8.9); eGFR For African Americans > 60 (> 60); eGFR For Non-African Americans > 60 (> 60)
[2020-01-04] MEDS ORDERED: Azithromycin 500 MG in D5% in Water 250 ML IVPB SCH (06:00)
[2020-01-04] MEDS ORDERED: Acetaminophen 325 MG TABLET PO PRN ×2 (06:14→11:32)
[2020-01-04 06:57] LABS: ABG Base Excess 0 mEq/L (-2 to 3); ABG HCO3 28 mEq/L (21-27); ABG Oxygen Saturation 96 % (95-98); ABG PCO2 55 mmHg (35-45); ABG PH 7.31 pH Units (7.32-7.45); ABG PO2 92 mmHg (85-104); ABG TCO2 30 mEq/L (20-26); Blood Gas Modality BiLevel
[2020-01-04] MEDS ORDERED: Insulin LISPRO 300 UNITS/3 ML VIAL SQ SCH ×3 (07:30→21:00)
[2020-01-04] MEDS ORDERED: Bumetanide 1 MG TABLET PO SCH (08:00)
[2020-01-04] MEDS ORDERED: MethylPREDNISolone 40 MG/ML VIAL IVP SCH (08:00)
[2020-01-04] MEDS ORDERED: Aspirin Enteric Coated 81 MG Tablet PO SCH (09:00)
[2020-01-04] MEDS ORDERED: predniSONE 20 MG TABLET PO SCH (09:00)
[2020-01-04] MEDS ORDERED: Lisinopril 20 MG TABLET PO SCH (09:00)
[2020-01-04] MEDS ORDERED: Bumetanide 1 MG/4 ML VIAL IVP SCH ×2 (10:00→17:00)
[2020-01-04] MEDS ORDERED: Budesonide/Formoterol 160/4.5 1 PUFF INH IH SCH (10:00)
[2020-01-04] MEDS: Ipratropium/Albuterol Neb 3 ML IH SCH ×7 (10:29→22:05)
[2020-01-04] MEDS ORDERED: Dexmedetomidine HCl 400 MCG/100 ML MLS IVC ONE (10:53)
[2020-01-04] MEDS: Dexmedetomidine HCl 400 MCG/100 ML MLS IVC SCH ×3 (11:51→19:25)
[2020-01-04] MEDS: Insulin LISPRO 300 UNITS/3 ML VIAL SQ SCH ×4 (11:56→23:37)
[2020-01-04] MEDS ORDERED: *HR* Heparin 5,000 UNIT/ML VIAL SQ SCH (14:00)
[2020-01-04] MEDS: *HR* Heparin 5,000 UNIT/ML VIAL SQ SCH ×2 (14:16→20:32)
[2020-01-04 14:23] LABS: Adenovirus Not Detected (Not Detect); Coronavirus 229E Not Detected (Not Detect); Coronavirus HKU1 Not Detected (Not Detect); Coronavirus NL63 Not Detected (Not Detect); Coronavirus OC43 Not Detected (Not Detect); Human Metapneumovirus Not Detected (Not Detect); Human Rhinovirus/Enterovirus Not Detected (Not Detect)
[2020-01-04 14:26] LABS: Bordetella Pertussis Not Detected (Not Detect); Chlamydophila pneumoniae Not Detected (Not Detect); Influenza A Subtype 2009 H1 DETECTED (Not Detect); Influenza B Not Detected (Not Detect); Mycoplasma pneumoniae Not Detected (Not Detect); Parainfluenza Virus 1 Not Detected (Not Detect); Parainfluenza Virus 2 Not Detected (Not Detect); Parainfluenza Virus 3 Not Detected (Not Detect); Parainfluenza Virus 4 Not Detected (Not Detect); Respiratory Syncytial Virus Not Detected (Not Detect)
[2020-01-04 14:56] LABS: ABG Base Excess 2 mEq/L (-2 to 3); ABG HCO3 30 mEq/L (21-27); ABG Oxygen Saturation 98 % (95-98); ABG PCO2 57 mmHg (35-45); ABG PH 7.33 pH Units (7.32-7.45); ABG PO2 112 mmHg (85-104); ABG TCO2 31 mEq/L (20-26)
[2020-01-04] MEDS: MethylPREDNISolone 40 MG/ML VIAL IVP SCH ×2 (16:09→23:44)
[2020-01-04] MEDS: Pantoprazole 40 MG VIAL IVP SCH (16:22)
[2020-01-04] MEDS ORDERED: Ringers Solution, Lactated 500 ML ONE (16:45)
[2020-01-04] MEDS: Ringers Solution, Lactated 1,000 ML IVC SCH ×2 (17:00→20:30)
[2020-01-04] MEDS ORDERED: Ringers Solution, Lactated 250 ML IVC ONE (17:10)
[2020-01-04] MEDS: Budesonide/Formoterol 160/4.5 1 PUFF INH IH SCH (22:05)
[2020-01-04 23:14] LABS: Bacteria,Urine None Seen per hpf (None-Few); RBC,Urine 50-100 per hpf (0-3); Squamous Epithelial Cell,Urine Many per lpf (None-Few)
[2020-01-05] MEDS: Ipratropium/Albuterol Neb 3 ML IH SCH ×11 (00:02→23:25)
[2020-01-05] MEDS: Dexmedetomidine HCl 400 MCG/100 ML MLS IVC SCH ×4 (00:56→18:47)
[2020-01-05 04:26] LABS: Hematocrit 38.7 % (35.3-44.9); Mean Corpuscular HGB Conc 32.6 g/dL (31.6-35.5); Mean Corpuscular Hemoglobin 26.6 pg (28.0-33.3); Mean Corpuscular Volume 81.8 fL (83.0-100.0); Mean Platelet Volume 9.7 fL (9.4-12.4); Platelet Count 259 K/mcL (140-400); Red Blood Count 4.73 M/mcL (3.82-4.97); Red Cell Distribution Width 14.7 % (11.5-14.5); White Blood Count 9.6 K/mcL (4.3-11.1)
[2020-01-05 04:27] LABS: Hemoglobin 12.6 g/dL (11.5-15.4)
[2020-01-05 04:41] LABS: BUN/Creatinine Ratio 35 (6-26); Blood Urea Nitrogen 28 mg/dL (8-23); Calcium 8.9 mg/dL (8.6-10.3); Carbon Dioxide 26 mEq/L (23-29); Chloride 98 mEq/L (98-107); Glucose 148 mg/dL (70-105); Magnesium 2.3 mg/dL (1.6-2.6); Osmolality,Calculated 280 (280-300); Potassium 4.4 mEq/L (3.5-5.1); Sodium 131 mEq/L (136-145); eGFR For African Americans > 60 (> 60); eGFR For Non-African Americans > 60 (> 60)
[2020-01-05] MEDS ORDERED: Azithromycin 500 MG in D5% in Water 250 ML IVPB SCH (06:00)
[2020-01-05] MEDS: Doxycycline 100 MG in 0.9 % Sodium Chloride Mini Bag 100 ML IVPB SCH ×2 (06:13→17:45)
[2020-01-05] MEDS: *HR* Heparin 5,000 UNIT/ML VIAL SQ SCH ×3 (06:14→21:50)
[2020-01-05] MEDS: Ringers Solution, Lactated 1,000 ML IVC SCH (06:14)
[2020-01-05] MEDS: Insulin LISPRO 300 UNITS/3 ML VIAL SQ SCH ×4 (06:17→19:18)
[2020-01-05] MEDS: Budesonide/Formoterol 160/4.5 1 PUFF INH IH SCH ×2 (07:32→19:41)
[2020-01-05] MEDS ORDERED: cefTRIAXone 1,000 MG in Water for inj. (sterile) 10 ML IVPB ONE (07:38)
[2020-01-05] MEDS ORDERED: Aminoglycoside Consult 1 EACH MC ONE (08:04)
[2020-01-05] MEDS: Aspirin Enteric Coated 81 MG Tablet PO SCH (08:05)
[2020-01-05] MEDS: Pantoprazole 40 MG VIAL IVP SCH (08:06)
[2020-01-05] MEDS: MethylPREDNISolone 40 MG/ML VIAL IVP SCH ×2 (08:06→17:45)
[2020-01-05] MEDS ORDERED: Lisinopril 20 MG TABLET PO SCH (09:00)
[2020-01-06] MEDS: Dexmedetomidine HCl 400 MCG/100 ML MLS IVC SCH ×2 (00:29→04:36)
[2020-01-06] MEDS: Insulin LISPRO 300 UNITS/3 ML VIAL SQ SCH ×5 (00:30→20:45)
[2020-01-06] MEDS: MethylPREDNISolone 40 MG/ML VIAL IVP SCH ×3 (00:30→16:28)
[2020-01-06] MEDS: Ipratropium/Albuterol Neb 3 ML IH SCH ×6 (03:35→23:56)
[2020-01-06 04:47] LABS: ABG Base Excess 4 mEq/L (-2 to 3); ABG HCO3 32 mEq/L (21-27); ABG Oxygen Saturation 96 % (95-98); ABG PCO2 64 mmHg (35-45); ABG PH 7.31 pH Units (7.32-7.45); ABG PO2 96 mmHg (85-104); ABG TCO2 34 mEq/L (20-26); Blood Gas Modality BiLevel
[2020-01-06 05:22] LABS: Hematocrit 39.8 % (35.3-44.9); Hemoglobin 12.6 g/dL (11.5-15.4); Immature Granulocytes % 0.3 % (0-4); Lymphocytes # 0.5 K/mcL (0.6-4.6); Mean Corpuscular HGB Conc 31.7 g/dL (31.6-35.5); Mean Corpuscular Hemoglobin 26.9 pg (28.0-33.3); Mean Platelet Volume 9.6 fL (9.4-12.4); Monocytes # 0.4 K/mcL (0.0-1.3); Monocytes % 7.2 %; Neutrophils # 5.1 K/mcL (1.6-8.9); Platelet Count 253 K/mcL (140-400); Red Blood Count 4.68 M/mcL (3.82-4.97); Red Cell Distribution Width 14.9 % (11.5-14.5); Segmented Neutrophils % 84.5 %; White Blood Count 6.1 K/mcL (4.3-11.1)
[2020-01-06 05:23] LABS: Hematocrit 39.6 % (35.3-44.9); Hemoglobin 12.6 g/dL (11.5-15.4); Mean Corpuscular HGB Conc 31.8 g/dL (31.6-35.5); Mean Platelet Volume 9.7 fL (9.4-12.4); Platelet Count 242 K/mcL (140-400); Red Blood Count 4.66 M/mcL (3.82-4.97); White Blood Count 6.2 K/mcL (4.3-11.1)
[2020-01-06 05:42] LABS: BUN/Creatinine Ratio 37 (6-26); Blood Urea Nitrogen 25 mg/dL (8-23); Calcium 8.6 mg/dL (8.6-10.3); Carbon Dioxide 29 mEq/L (23-29); Chloride 99 mEq/L (98-107); Glucose 130 mg/dL (70-105); Magnesium 2.1 mg/dL (1.6-2.6); Osmolality,Calculated 286 (280-300); Potassium 4.9 mEq/L (3.5-5.1); Sodium 135 mEq/L (136-145); eGFR For African Americans > 60 (> 60); eGFR For Non-African Americans > 60 (> 60)
[2020-01-06] MEDS: *HR* Heparin 5,000 UNIT/ML VIAL SQ SCH ×3 (06:15→20:14)
[2020-01-06] MEDS: Doxycycline 100 MG in 0.9 % Sodium Chloride Mini Bag 100 ML IVPB SCH (06:32)
[2020-01-06] MEDS: Pantoprazole 40 MG VIAL IVP SCH (07:31)
[2020-01-06] MEDS: Aspirin Enteric Coated 81 MG Tablet PO SCH (07:32)
[2020-01-06] MEDS: Budesonide/Formoterol 160/4.5 1 PUFF INH IH SCH ×2 (07:41→20:26)
[2020-01-06] MEDS ORDERED: cefTRIAXone 1,000 MG in 0.9 % Sodium Chloride Mini Bag 100 ML IVPB SCH (09:00)
[2020-01-06 17:05] LABS: BUN/Creatinine Ratio 38 (6-26); Blood Urea Nitrogen 24 mg/dL (8-23); Calcium 9.2 mg/dL (8.6-10.3); Carbon Dioxide 32 mEq/L (23-29); Chloride 97 mEq/L (98-107); Glucose 75 mg/dL (70-105); Magnesium 2.1 mg/dL (1.6-2.6); Osmolality,Calculated 287 (280-300); Potassium 4.4 mEq/L (3.5-5.1); Sodium 137 mEq/L (136-145); eGFR For African Americans > 60 (> 60); eGFR For Non-African Americans > 60 (> 60)
[2020-01-06] MEDS: Cefdinir 300 MG CAPSULE PO SCH (20:14)
[2020-01-06] MEDS: Doxycycline 100 MG CAPSULE PO SCH (20:14)
[2020-01-07] MEDS: Insulin LISPRO 300 UNITS/3 ML VIAL SQ SCH ×2 (00:32→05:36)
[2020-01-07] MEDS: Ipratropium/Albuterol Neb 3 ML IH SCH ×6 (03:43→23:37)
[2020-01-07 04:08] LABS: Basophils % 0.3 %; Eosinophils % 0.1 %; Hematocrit 45.2 % (35.3-44.9); Immature Granulocytes % 0.3 % (0-4); Lymphocytes # 2.4 K/mcL (0.6-4.6); Lymphocytes % 34.8 %; Mean Corpuscular HGB Conc 31.9 g/dL (31.6-35.5); Mean Corpuscular Hemoglobin 26.9 pg (28.0-33.3); Mean Corpuscular Volume 84.5 fL (83.0-100.0); Mean Platelet Volume 9.3 fL (9.4-12.4); Monocytes # 1.3 K/mcL (0.0-1.3); Monocytes % 18.1 %; Neutrophils # 3.2 K/mcL (1.6-8.9); Platelet Count 285 K/mcL (140-400); Red Blood Count 5.35 M/mcL (3.82-4.97); Red Cell Distribution Width 15.1 % (11.5-14.5); Segmented Neutrophils % 46.4 %; White Blood Count 6.9 K/mcL (4.3-11.1)
[2020-01-07 04:31] LABS: BUN/Creatinine Ratio 35 (6-26); Blood Urea Nitrogen 23 mg/dL (8-23); Calcium 9.3 mg/dL (8.6-10.3); Carbon Dioxide 33 mEq/L (23-29); Chloride 95 mEq/L (98-107); Glucose 70 mg/dL (70-105); Osmolality,Calculated 284 (280-300); Sodium 136 mEq/L (136-145); eGFR For African Americans > 60 (> 60); eGFR For Non-African Americans > 60 (> 60)
[2020-01-07 04:32] LABS: Hemoglobin 14.4 g/dL (11.5-15.4)
[2020-01-07 04:46] LABS: Platelet Estimate Normal (Normal)
[2020-01-07] MEDS: MethylPREDNISolone 40 MG/ML VIAL IVP SCH ×2 (05:30→18:11)
[2020-01-07] MEDS: *HR* Heparin 5,000 UNIT/ML VIAL SQ SCH ×3 (05:30→21:27)
[2020-01-07] MEDS: Budesonide/Formoterol 160/4.5 1 PUFF INH IH SCH ×2 (07:55→20:17)
[2020-01-07] MEDS: Doxycycline 100 MG CAPSULE PO SCH ×2 (09:08→21:27)
[2020-01-07] MEDS: Cefdinir 300 MG CAPSULE PO SCH ×2 (09:08→21:27)
[2020-01-07] MEDS: Aspirin Enteric Coated 81 MG Tablet PO SCH (09:08)
[2020-01-07] MEDS: Pantoprazole 40 MG VIAL IVP SCH (09:09)
[2020-01-07] MEDS ORDERED: Insulin LISPRO 300 UNITS/3 ML VIAL SQ SCH ×4 (16:30→21:00)
[2020-01-07] MEDS ORDERED: Acetaminophen 325 MG TABLET PO PRN (18:03)
[2020-01-07] MEDS ORDERED: Albuterol 2.5 MG/3 ML NEBULIZER IH PRN (18:03)
[2020-01-07] MEDS ORDERED: DICLOFENAC SODIUM 4 GM TP PRN (22:08)
[2020-01-08] MEDS: Ipratropium/Albuterol Neb 3 ML IH SCH ×3 (04:19→11:23)
[2020-01-08] MEDS: *HR* Heparin 5,000 UNIT/ML VIAL SQ SCH ×2 (06:01→15:41)
[2020-01-08 06:57] VITALS: BP 131/79
[2020-01-08] MEDS: Budesonide/Formoterol 160/4.5 1 PUFF INH IH SCH (07:37)
[2020-01-08] MEDS: Insulin LISPRO 300 UNITS/3 ML VIAL SQ SCH ×2 (07:50→14:19)
[2020-01-08] MEDS: Cefdinir 300 MG CAPSULE PO SCH (08:21)
[2020-01-08] MEDS: Doxycycline 100 MG CAPSULE PO SCH (08:21)
[2020-01-08] MEDS ORDERED: predniSONE 20 MG TABLET PO SCH ×2 (09:00)
[2020-01-08] MEDS ORDERED: Aspirin Enteric Coated 81 MG Tablet PO SCH (09:00)
== END 2020-01-08 14:30 | disposition home health service (06) | DRG 193 ==
LOC: 2NENU → ICNU 11:25 → SUATTDRO 12:44 → 2ANU 01-07 18:01
PROVIDERS: ADMIT Internal Medicine; ATTEND Internal Medicine